=== PATIENT | male | born 1975 | race African-American/Black ===

== ENCOUNTER 2016-07-22 13:55 | Emergency (ER) | payer MEDICAID ==
[~2016-07-22] VITALS: Ht 177.8 cm; Wt 68.0 kg
[~2016-07-22 13:55] MED LIST: MONT10TA21 PO; OMEP20CA10 PO; ONDA4TAB5 PO; PROVENTIL INH
[2016-07-22 13:56] VITALS: BP 151/78
[2016-07-22] MEDS ORDERED: ONDANSETRON HCL 4MG/2ML VIAL IV STA (15:00)
[2016-07-22] MEDS ORDERED: SODIUM CHLORIDE 0.9% 1,000 ML IV ONE (15:00)
== END 2016-07-22 15:30 | disposition left against medical advice (07) ==
LOC: ER 14:02
DX: Z76.5 Malingerer [conscious simulation] (principal); Z87.19 Personal history of other diseases of the digestive system
CPT/HCPCS: 99283; Z7610; J7030

== ENCOUNTER 2016-07-22 16:44 | Emergency (ER) | payer MEDICAID ==
[~2016-07-22] VITALS: Ht 177.8 cm; Wt 68.0 kg
[2016-07-22 16:45] VITALS: BP 118/77
== END 2016-07-22 19:30 | disposition left against medical advice (07) ==
LOC: ER 16:45
DX: R10.9 Unspecified abdominal pain (principal); R11.2 Nausea with vomiting, unspecified; Z53.21 Procedure and treatment not carried out due to patient leaving prior to being seen by health care provider

== ENCOUNTER 2016-10-10 01:13 | Emergency (ER) | payer MEDICAID ==
[~2016-10-10] VITALS: Ht 177.8 cm; Wt 68.0 kg
[2016-10-10] MEDS ORDERED: ONDANSETRON HCL 4MG/2ML VIAL IV STA (01:48)
[2016-10-10] MEDS ORDERED: MORPHINE SULFATE 4 MG/ML CPJ (NOT FOR IM USE) IV STA (01:48)
[2016-10-10] MEDS ORDERED: FAMOTIDINE 20MG/2ML VIAL IV STA (01:48)
[2016-10-10] MEDS ORDERED: SODIUM CHLORIDE 0.9% 1,000 ML IV ONE (01:48)
[2016-10-10] MEDS ORDERED: LORAZEPAM 2MG/ML CPJ IV ONE (02:00)
[2016-10-10 02:14] LABS: HEMATOCRIT. 39.4 % (42.0-52.0); HEMOGLOBIN. 12.4 g/dL (14.0-18.0); MEAN CORPUSCULAR HEMOGLOBIN 25.7 pg (28.0-32.0); MEAN CORPUSCULAR VOLUME 81.5 fL (80.0-94.0); MEAN PLATELET VOLUME 8.9 fl (7.4-10.4); PLATELET 286 x1000/uL (130-400); RED BLOOD CELL COUNT 4.84 mill/uL (4.7-6.1); RED CELL DISTRIBUTION WIDTH 14.4 % (11.6-14.6)
[2016-10-10 02:24] LABS: CARBON DIOXIDE 24 mEq/L (21-32); CHLORIDE 106 mEq/L (98-107)
[2016-10-10 03:22] LABS: PLATELET ESTIMATE NORMAL
[2016-10-10] MEDS ORDERED: KETOROLAC 30MG/ML VIAL IV ONE (04:30)
[2016-10-10] MEDS ORDERED: DIPHENHYDRAMINE 50MG/ML VIAL IV ONE (04:30)
[2016-10-10] MEDS ORDERED: MAGNESIUM/ALUMINUM HYDROXIDE/SIMETHICONE 30ML UDC PO ONE (06:00)
[2016-10-10] MEDS ORDERED: VISCOUS LIDOCAINE 2% 15 ML UDC PO STA (06:04)
[2016-10-10 06:50] VITALS: BP 116/72
== END 2016-10-10 06:56 | disposition home or self-care (01) ==
LOC: ER 01:13
DX: K21.9 Gastro-esophageal reflux disease without esophagitis (principal); J45.909 Unspecified asthma, uncomplicated; F17.200 Nicotine dependence, unspecified, uncomplicated
CPT/HCPCS: 36415; 80053; 83690; 85025; 96361; 96374; 96375; 99284; J1200; J1885; J2060; J2270; J2405; J3490; J7030

== ENCOUNTER 2017-01-03 00:48 | Emergency (ER) | payer MEDICAID ==
[~2017-01-03] VITALS: Ht 182.9 cm; Wt 73.0 kg
[2017-01-03] MEDS ORDERED: SODIUM CHLORIDE 0.9% 1,000 ML IV ONE (01:21)
[2017-01-03] MEDS ORDERED: ONDANSETRON HCL 4MG/2ML VIAL IM ONE (01:30)
[2017-01-03] MEDS ORDERED: KETOROLAC 30MG/ML VIAL IV ONE (01:30)
[2017-01-03 01:48] LABS: CHLORIDE 102 mEq/L (98-107)
[2017-01-03 01:51] LABS: BASOPHILS % 0.4 % (0.0-2.0); EOSINOPHILS % 1.7 % (0.0-5.0); HEMATOCRIT. 40.9 % (42.0-52.0); MEAN CORPUSCULAR HEMOGLOBIN 26.2 pg (28.0-32.0); MEAN CORPUSCULAR VOLUME 82.4 fL (80.0-94.0); MONOCYTES % 8.6 % (2.0-8.0); NEUTROPHILS % 70.3 % (40.0-76.0); PLATELET 251 x1000/uL (130-400); RED BLOOD CELL COUNT 4.96 mill/uL (4.7-6.1); RED CELL DISTRIBUTION WIDTH 13.4 % (11.6-14.6)
[2017-01-03 01:52] LABS: INR 1.1
[2017-01-03 01:57] LABS: CARBON DIOXIDE 26 mEq/L (21-32)
[2017-01-03 02:09] LABS: GLUCOSE URINE NEGATIVE (NEGATIVE); KETONES URINE NEGATIVE (NEGATIVE); LEUKOCYTE ESTERASE URINE NEGATIVE (NEGATIVE); NITRITE URINE NEGATIVE (NEGATIVE); OCCULT BLOOD URINE NEGATIVE (NEGATIVE); PROTEIN URINE TRACE (NEGATIVE); SPECIFIC GRAVITY URINE 1.036 (1.005-1.030)
[2017-01-03 02:11] LABS: CLARITY URINE CLEAR (CLEAR); COLOR URINE YELLOW (YELLOW)
[2017-01-03] MEDS ORDERED: PANTOPRAZOLE SODIUM 40 MG/VIAL IV STA (02:14)
[2017-01-03] MEDS ORDERED: METOCLOPRAMIDE HCL 10MG/2ML VIAL IV ONE (03:15)
[2017-01-03] MEDS ORDERED: MORPHINE SULFATE 4 MG/ML CPJ (NOT FOR IM USE) IV ONE ×2 (03:15→05:15)
[2017-01-03] MEDS ORDERED: POTASSIUM CHLORIDE 20MEQ/PACKET PO ONE (03:15)
[2017-01-03] MEDS ORDERED: MAGNESIUM/ALUMINUM HYDROXIDE/SIMETHICONE 30ML UDC PO ONE (05:00)
[2017-01-03] MEDS ORDERED: ONDANSETRON HCL 4MG/2ML VIAL IV ONE (05:15)
[2017-01-03] MEDS ORDERED: CEFTRIAXONE 2 G PREMIX 50 ML IV ONE (07:15)
[2017-01-03] MEDS ORDERED: CEFTRIAXONE 2 G in DEXTROSE 5% WATER 50 ML IV SCH (07:45)
[2017-01-03 08:00] VITALS: BP 120/69
== END 2017-01-03 10:23 | disposition home or self-care (01) ==
LOC: ER 00:51
DX: R10.9 Unspecified abdominal pain (principal); R11.10 Vomiting, unspecified; E86.0 Dehydration; E87.6 Hypokalemia; J18.9 Pneumonia, unspecified organism; F17.200 Nicotine dependence, unspecified, uncomplicated; J45.909 Unspecified asthma, uncomplicated
CPT/HCPCS: 36415; 74176; 80053; 81001; 83690; 85025; 85610; 96361; 96365; 96372; 96375; 96376; 99285; C9113; J0696; J1885; J2270; J2405; J2765; J7030; Z7610; J7060